=== PATIENT | female | born 1965 | race Caucasian/White ===

== ENCOUNTER 2016-08-04 14:14 | Emergency (ER) | payer OTHER ==
[~2016-08-04] VITALS: Ht 152.4 cm; Wt 93.9 kg
[2016-08-04 14:18] VITALS: BP 141/84
[2016-08-04] MEDS ORDERED: ZOLOFT100 M1 PO (14:28)
[2016-08-04] MEDS ORDERED: TOPROL XL25 M1 PO (14:29)
[2016-08-04] MEDS ORDERED: LEVOXYL75 MCG PO (14:29)
--- NOTE | 2016-08-04 14:52 | ED UPPER/LOWER EXTREMITY COMPL ---
History of Present Illness General Chief Complaint: Fall Stated Complaint: FALL YESTERDAY ON LEFT ARM Source: patient Exam Limitations: no limitations Vital Signs & Intake/Output Vital Signs & Intake/Output Vital Signs Date Time Temp Pulse Resp B/P Pulse O2 O2 Flow FiO2 Ox Delivery Rate 08/04 1418 96.8 68 20 141/84 96 Room Air ED Intake and Output 08/05 0000 08/04 1200 Intake Total 0 Output Total Balance 0 Intake, Oral 0 Patient 207 lb Weight Allergies Coded Allergies: Penicillins (HIVES 08/04/16) erythromycin base (N/V 08/04/16) morphine (N/V 08/04/16) Reconcile Medications Levothyroxine Sodium 175 MCG TABLET 0.5 TAB PO DAILY AC THYROID (Reported) Metoprolol Succ XL (Toprol XL) 25 MG TAB 1 TAB PO DAILY HEART (Reported) Oxycodone HCl/Acetaminophen (Percocet 5-325 MG Tablet) 5 MG-325 MG TABLET 1 TAB PO TID PRN pain Sertraline HCl (Zoloft) 100 MG TABLET 1 TAB PO DAILY DEPRESSION (Reported) Triage Note: PT TO ED C/O LEFT ARM/SHOULDER PAIN S/P FALLING IN THE SNOW YESTERDAY. DENIES HEAD STRIKE WITH FALL. PT STATES SHE HAS TORN LIGAMENTS TO LEFT SHOULDER/ARM AND IS SEEING AN ORTHOPEDIC FOR IT. Triage Nurses Notes Reviewed? yes HPI: Severe aching left arm left shoulder and left elbow pain after 2 falls after slipping on ice yesterday. She is right-hand dominant. She has previous history of"tears"in the left shoulder and left elbow, she had a fall 1 month ago to the day and had a shoulder and elbow dislocation as per patient. She was seen at [facility] and states that she was put under to have the joints reduced and has known tears and fracture of the elbow and is planning on having surgery with her orthopedic surgeon in the next few weeks. She is without a splint or sling at this time. She fell and reinjured both and has pain with palpation and movement. No other injuries no neurologic symptoms no weakness no numbness (NADIR GREGG) Past History Travel History Traveled to [place] past 21 day No Medical History Any Pertinent Medical History? see below for history Cardiovascular: IRREGULAR HEART BEAT Musculoskeletal: TORN LIGAMENTS L SHOULDER History of MRSA: No History of VRE: No History of CDIFF: No Surgical History Surgical History: non-contributory Psychosocial History Who do you live with Spouse Services at Home None What is your primary language Croatian Tobacco Use: Quit >30 days ago ETOH Use: denies use Illicit Drug Use: denies illicit drug use Family History Hx Contributory? No (NADIR GREGG) Review of Systems Review of Systems Constitutional: Reports: see HPI. EENTM: Reports: no symptoms. Respiratory: Reports: no symptoms. Cardiovascular: Reports: no symptoms. Gastrointestinal/Abdominal: Reports: no symptoms. Genitourinary: Reports: no symptoms. Skin: Reports: no symptoms. Neurological/Psychological: Reports: no symptoms. Hematologic/Endocrine: Reports: no symptoms. Immunological: Reports: no symptoms. All Other Systems: Reviewed and Negative (NADIR GREGG) Physical Exam Physical Exam General Appearance: well developed/nourished Comments: Well-developed well-nourished no apparent distress. HEENT: Atraumatic, extraocular motion intact Neck: Supple, no lymphadenopathy Back: Nontender Respiratory: No respiratory distress Extremities: No edema, full range of motion Neuro: Alert and oriented x3 Psych: Mood affect normal, normal memory normal judgment. Skin: Warm and dry, no rash on exposed skin Shoulder and elbow range of motion is severely limited, mild generalized tenderness to the left anterior shoulder region. Severe tenderness over the radial head region or left elbow. Mild swelling noted in this area as well. Neurovascularly intact. (NADIR GREGG) Progress Differential Diagnosis: dislocation, fracture, sprain, tendon injury Plan of Care: Orders Procedure Date/time Status Durable Medical Equipment 08/04 1511 Active Diagnostic Imaging: Viewed by Me: Radiology Read. Discussed w/RAD: Radiology Read. Radiology Impression: PATIENT: MOHSEN JACKSON PRESENT AGE: 51 PATIENT ACCOUNT NO: [id number] : 64 LOCATION: [facility] ORDERING PHYSICIAN: NADIR MCKEE SERVICE DATE: 08/04/16 EXAM TYPE : RAD - XRY-ELBOW 3 OR MORE VIEWS, L; XRY-SHOULDER COMPLETE-LEFT EXAMINATION: XR SHOULDER, LEFT XR ELBOW, LEFT CLINICAL INFORMATION: Left elbow and left shoulder pain following fall. COMPARISON: None. TECHNIQUE: Internal rotation, external rotation, transscapular views of the left shoulder. AP, lateral and oblique views of the left elbow. FINDINGS: Left shoulder: No acute fracture or dislocation of the left shoulder. The left acromioclavicular joint is intact. The visualized portions of the left lung are clear. Left elbow: Multiple views of the left elbow demonstrate an acute avulsion fracture fragment arising from the lateral epicondyle of the left elbow. There are small anterior and posterior elbow joint effusions. There is no appreciable dislocation of the left elbow. IMPRESSION: 1. No acute fracture or dislocation of the left shoulder. 2. Small avulsion fracture fragment arising from the lateral condyle of the left elbow. Small anterior and posterior left elbow joint effusions. No left elbow dislocation. DICTATED BY: TY JAIME MD DATE/TIME DICTATED:08/04/161516 PAYROLL BENEFITS CLERK:JOLENE DATE/TIME TRANSCRIBED:08/04/16, i REVIEWED THE X -RAYS MYSELF AND DO FEEL THOUGH THERE IS A NONDISPLACED RADIAL NECK FRACTURE AND ANTERIOR SAIL SIGN Comments: Discussed with patient results of x-rays, left shoulder is negative but cannot rule out ligamentous or rotator cuff injury, the left elbow shows, in my opinion , a nondisplaced radial neck fracture and a joint effusion, there is an avulsion injury as well however I feel is of the avulsion injury might be old due to patient's previous elbow dislocation. I feel as though the radial head fracture is new as there are no signs of healing and there is a new joint effusion which one would suspect that there would be signs of healing of the injury is one- month-old and there would be no longer a joint effusion. Assuming that these elbow fractures are new and patient has been in rehabilitation for her left elbow and does not have full range of motion yet due to her previous injury, I feel as though splinting the elbow would inhibit her recovery because of limited range of motion. She is placed in a sling and told to follow-up with her orthopedist this week for further evaluation and treatment Left upper extremity sling applied by myself, neurovascular intact postprocedure (NADIR GREGG) Departure Departure Disposition: HOME OR SELF CARE Condition: Stable Clinical Impression Primary Impression: Fracture of radial head, left, closed Qualifiers: Encounter type: initial encounter Fracture alignment: nondisplaced Qualified Code: S52.125A - Nondisplaced fracture of head of left radius, initial encounter for closed fracture Secondary Impressions: Fall Qualifiers: Encounter type: initial encounter Qualified Code: W19.XXXA - Unspecified fall, initial encounter Left shoulder strain Qualifiers: Encounter type: initial encounter Qualified Code: S46.912A - Strain of unspecified muscle, fascia and tendon at shoulder and upper arm level, left arm, initial encounter Referrals: CHEMA MCKEE,KUMAR PERSAUD (PCP/Family) ADAMA SUN MD Additional Instructions: use sling for comfort motrin and percocet for pain follow up with orthopedist this week. rest, ice. Departure Forms: Customer Survey General Discharge Information Prescriptions: Current Visit Scripts Oxycodone HCl/Acetaminophen (Percocet 5-325 MG Tablet) 1 TAB PO TID PRN pain #15 TAB (LUIS MCKEE,NADIR) PA/SPECIAL EDUCATION SUPERVISOR Co-Sign Statement Statement: ED Attending supervision documentation- [] I saw and evaluated the patient. I have also reviewed all the pertinent lab results and diagnostic results. I agree with the findings and the plan of care as documented in the PA's/SPECIAL EDUCATION SUPERVISOR's documentation. [X] I have reviewed the ED Record and agree with the PA's/SPECIAL EDUCATION SUPERVISOR's documentation. [] Additions or exceptions (if any) to the PAs/SPECIAL EDUCATION SUPERVISOR's note and plan are summarized below: [] (SAÚL TROY,MAURICE)
[2016-08-04] MEDS ORDERED: PERCOCET 5-3251 EACH PO (15:14)
--- NOTE | 2016-08-04 15:23 | RADIOLOGY REPORT ---
EXAMINATION: XR SHOULDER, LEFT XR ELBOW, LEFT CLINICAL INFORMATION: Left elbow and left shoulder pain following fall. COMPARISON: None. TECHNIQUE: Internal rotation, external rotation, transscapular views of the left shoulder. AP, lateral and oblique views of the left elbow. FINDINGS: Left shoulder: No acute fracture or dislocation of the left shoulder. The left acromioclavicular joint is intact. The visualized portions of the left lung are clear. Left elbow: Multiple views of the left elbow demonstrate an acute avulsion fracture fragment arising from the lateral epicondyle of the left elbow. There are small anterior and posterior elbow joint effusions. There is no appreciable dislocation of the left elbow. IMPRESSION: 1. No acute fracture or dislocation of the left shoulder. 2. Small avulsion fracture fragment arising from the lateral condyle of the left elbow. Small anterior and posterior left elbow joint effusions. No left elbow dislocation.
== END 2016-08-04 15:22 ==
LOC: ERH 14:14
DX: S52.122A Displaced fracture of head of left radius, initial encounter for closed fracture (principal); S46.912A Strain of unspecified muscle, fascia and tendon at shoulder and upper arm level, left arm, initial encounter; W00.0XXA Fall on same level due to ice and snow, initial encounter
CPT/HCPCS: 73030-LT; 73080-LT

== ENCOUNTER 2016-11-13 12:18 | Emergency (ER) | payer OTHER ==
[~2016-11-13] VITALS: Ht 152.4 cm; Wt 93.0 kg
[~2016-11-13 12:18] MED LIST: LEVOXYL75 MCG PO; PERCOCET 5-3251 EACH PO; TOPROL XL25 M1 PO; ZOLOFT100 M1 PO
[2016-11-13 12:39] VITALS: BP 107/72
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
--- NOTE | 2016-11-13 14:18 | RADIOLOGY REPORT ---
EXAMINATION: XR SHOULDER, LEFT XR elbow, left CLINICAL INFORMATION: Injury. Pain. COMPARISON: 08/04/2016 TECHNIQUE: AP external rotation, Grashey, scapular Y, and axillary views of the left shoulder. 3 views of the left elbow. FINDINGS: Left shoulder: No acute fracture or dislocation. The humeral head articulates appropriately with the glenoid. The joint space is maintained. The acromioclavicular joint is intact. The visualized portion of the lung is clear. Left elbow: Ossific fragments adjacent to the lateral humeral epicondyle again noted. No acute fracture or dislocation. Alignment is anatomic. Joint spaces are maintained. No joint effusion. IMPRESSION: No acute fracture or malalignment of the left shoulder or elbow. Redemonstration of small ossific fragments adjacent to the lateral humeral epicondyle.
[2016-11-13] MEDS ORDERED: PERCOCET 5-3251 EACH PO (14:28)
== END 2016-11-13 14:33 ==
LOC: ERH 12:18
DX: S53.402A Unspecified sprain of left elbow, initial encounter (principal); S43.402A Unspecified sprain of left shoulder joint, initial encounter; Y04.0XXA Assault by unarmed brawl or fight, initial encounter
CPT/HCPCS: 73030-LT; 73080-LT